=== PATIENT | female | born 1945 | race Caucasian/White ===

== ENCOUNTER 2020-09-27 15:08 | Inpatient (IN) | payer MEDICARE, SELFPAY ==
[2020-09-27 15:22] VITALS: BP 182/110; BP 215/97; PULSE 78; PULSE 98; RESP 17; TEMP 36.9; O2SAT 100; BMI 23.9
--- NOTE | 2020-09-27 15:34 | ED_ITS ---
HPI - Altered Mental Status General Chief Complaint: Altered Mental Status Stated Complaint: unknown Time Seen by Provider: 09/27/20 15:29 Source: EMS Mode of arrival: EMS History of Present Illness HPI narrative: 75-year-old female with a past medical history Alzheimer's, aortic aneurysm, presenting to ED for unwitnessed fall this morning s/p feeling dizzy. Patient lives at home alone, per family who spoke to patient this morning on phone patient had slurred speech/increased confusion. Suspected fall around 9:30-10am, LEAD PRODUCER came at 1:00 p.m. and said patient was staring off into space. Difficult to obtain clear history from patient due to dementia/forgetfulness. Denies pain at present. Unknown head trauma, denies taking anticoagulation, CP/SOB, abd pain, N/V Per son at baseline patient can have full conversations, is just forgetful, and stubborn complaint: altered mental status Related Data Allergies Allergy/AdvReac Type Severity Reaction Status Date / Time Sulfa (Sulfonamide Allergy Unknown UNKNOWN Unverified 07/15/20 15:03 Antibiotics) [SULFA (SULFONAMIDE ANTIBIOTICS)] Review of Systems Review of Systems: Constitutional:No Fever, No Chills Cardiovascular: No Chest Pain, No SOB Respiratory: No Cough Gastrointestinal: No Nausea, No Vomiting, No Abdominal pain Musculoskeletal: No joint pain, No Myalgias Skin: No Skin Lesions, No rash History limited secondary to dementia Yes all other systems are reviewed and are negative Neurologic: Reports confusion Psychiatric: Psychiatric: Reports confusion PMFSH Past Medical History Attestation statement: The following information was validated with the patient. Social History Social History Alcohol intake: never Smoked in Last 30 Days: No Use of substances other than those prescribed or required for medical reasons: No Advance Directives: No Advance Directives Information Provided: Yes Physical Exam Vital Signs: Vital Signs: Last Vital Signs Temp 98.2 F 09/27/20 19:27 Pulse 82 09/27/20 19:27 Resp 16 09/27/20 19:27 BP 187/93 H 09/27/20 19:27 Pulse Ox 99 09/27/20 19:27 Body Mass Index 23.9 Const: General: cooperative and confusion Orientation/consciousness: No oriented to time and confusion Limitations: no limitations HENMT: Other: Atraumatic Head: Yes normal to inspection Ears: hearing grossly normal bilaterally General nose exam: Normal external nose present Face and sinus: Yes normal facial exam Mouth: Normal oral and palatal mucosa present Eyes: General: appearance normal, both eyes and all related structures Pupils: Equal, round and reactive pupils present EOM: EOMs intact bilaterally Neck: Neck: Yes normal visual inspection Chest: Chest palpation & inspection: normal inspection of the chest Resp: Effort & Inspection: normal respiratory effort Auscultation: clear to auscultation bilaterally and no wheezes Cardio: Rate: regular rate Heart sounds: S1 normal heart sound present and S2 normal heart sound present GI: Inspection: Yes normal to inspection Palpation (GI): Soft to palpation, nontender, no guarding and not rigid Back/Spine/Pelvis: Other: No midline thoracic/lumbar spinous tenderness Skin: Rashes: no rashes Wounds: no wounds Neuro: Other: Intermittently follows commands, pleasantly confused, A&O x2 General: No oriented to time, tone normal, moves all extremities, no focal motor deficits, CN's II-XI intact bilaterally and confusion Cranial nerves: Yes Equal, round and reactive pupils present Gait exam (Neuro): Normal gait present Coordination: [id number] test normal Extrem: General: Yes normal to inspection NIH Stroke Scale Internal: Initial- Upon Arrival Level of Consciousness: Alert Level of Consciousness Questions: Answers one question correctly (baseline dementia) Level of Consciousness Commands: Performs both tasks correctly Best Gaze: Normal Visual: No visual loss Facial Palsy: Normal Motor Arm (Right): No drift Motor Arm (Left): No drift Motor Leg (Right): No drift Motor Leg (Left): No drift Limb Ataxia: Absent Sensory: Normal Best Language: No aphasia Dysarthia: Normal Extinction and Inattention: No abnormality Score: 1 Course Course Course Narrative: -elevated troponin 17.4 > no ischemic EKG changes, no priors to compare, will obtain 3hr repeat -labs otherwise unremarkable -CXR showing slightly enlarged cardiac silhouette -Head CT and C-spine CT without acute findings -2054--repeat troponin 19.3 > no delta, CO unlikely CT angio chest--mild aneurysmal dilation of the ascending aorta with maximum dimension around 4 cm. No dissection. >> plan for admission for further evaluation of possible CVA/TIA likely CTA head neck/MRI MDM - Altered Mental Status MDM Narrative Medical decision making narrative: 75-year-old female with a PMHx Alzheimer's, aortic aneurysm, presenting to ED for unwitnessed fall this morning s/p feeling dizzy. Patient lives at home alone, per family who spoke to patient this morning on phone patient had slurred speech/increased confusion. On exam hypertensive, NAD, A&O x2, confused, unable to obtain clear history, no focal neuro deficits. Concern for SDH vs ?CVA or TIA vs ACS vs metabolic/infectious etiology. Lower concern for dissection but on differential with pts hx Plan: EKG, labs, imaging, UA, reassess Lab Data Result diagrams: 09/27/20 16:24 09/27/20 16:24 Labs: Lab Results 09/27/20 09/27/20 09/27/20 Range/Units 15:50 16:24 16:24 WBC 9.4 (4.8-10.8) X10*3/uL RBC 4.19 L (4.20-5.50) X10*6/uL Hgb 12.8 (12.0-16.0) g/dl Hct 38.5 (37-47) % MCV 91.9 (80-98) fL MCH 30.5 (27.0-33.0) pg MCHC 33.2 (31.0-35.0) g/dl RDW 14.8 (11.0-16.0) % Plt Count 214 (160-400) X10*3/uL MPV 11.0 (9.4-12.3) fL Immature Gran % (Auto) 0.4 (0.0-0.4) % Neut % (Auto) 73.7 H (45-73) % Lymph % (Auto) 13.9 L (20-40) % [place] % (Auto) 10.2 (2-11) % Eos % (Auto) 1.2 (0-4) % Baso % (Auto) 0.6 (0-2) % Lymph # (Auto) 1.3 (1.2-4.9) X10*3/uL [place] # (Auto) 1.0 (0.1-1.2) X10*3/uL Eos # (Auto) 0.1 (0.0-0.4) X10*3/uL Baso # (Auto) 0.1 (0.0-0.2) X10*3/uL Abs Immat Gran (auto) 0.04 H (0.00-0.03) X10*3/uL Absolute Neuts (auto) 6.9 (2.0-8.3) X10*3/uL Absolute Nucleated RBC 0.000 (0.0-0.012) X10*3/uL Nucleated RBC % (auto) 0.0 (0.0-0.2) /100WBC PT (10.8-13.0) SEC INR (0.9-1.1) APTT (24.1-38.0) SEC Hold Blue Top Sodium 141 (135-145) mmol/L Potassium 4.1 (3.3-5.1) mmol/l Chloride 105 (96-108) mmol/L Carbon Dioxide 28 (22-29) mmol/L Anion Gap 12 (12-20) BUN 21 H (9-16) mg/dL Creatinine 0.77 (0.5-1.4) mg/dL Estim Creat Clear Calc 63.9 Estimated GFR > 60 POC Glucose 69 (60-115) mg/dL Random Glucose 100 (60-115) mg/dL Calcium 9.4 (8.4-10.2) mg/dL Magnesium 2.2 (1.6-2.6) mg/dL Total Bilirubin 0.5 (0.0-1.0) mg/dL Direct Bilirubin 0.2 (0.0-0.5) mg/dL AST 27 (5-31) U/L ALT 16 (0-31) U/L Alkaline Phosphatase 64 (39-117) U/L Troponin I High Sens (<3.5-17.0) ng/L B-Natriuretic Peptide (<100) pg/mL Total Protein 7.1 (6.5-8.0) g/dL Albumin 4.2 (3.5-5.0) g/dL Lipase 9 (8-78) U/L 09/27/20 09/27/20 09/27/20 Range/Units 16:24 16:24 16:24 WBC (4.8-10.8) X10*3/uL RBC (4.20-5.50) X10*6/uL Hgb (12.0-16.0) g/dl Hct (37-47) % MCV (80-98) fL MCH (27.0-33.0) pg MCHC (31.0-35.0) g/dl RDW (11.0-16.0) % Plt Count (160-400) X10*3/uL MPV (9.4-12.3) fL Immature Gran % (Auto) (0.0-0.4) % Neut % (Auto) (45-73) % Lymph % (Auto) (20-40) % [place] % (Auto) (2-11) % Eos % (Auto) (0-4) % Baso % (Auto) (0-2) % Lymph # (Auto) (1.2-4.9) X10*3/uL [place] # (Auto) (0.1-1.2) X10*3/uL Eos # (Auto) (0.0-0.4) X10*3/uL Baso # (Auto) (0.0-0.2) X10*3/uL Abs Immat Gran (auto) (0.00-0.03) X10*3/uL Absolute Neuts (auto) (2.0-8.3) X10*3/uL Absolute Nucleated RBC (0.0-0.012) X10*3/uL Nucleated RBC % (auto) (0.0-0.2) /100WBC PT 11.0 (10.8-13.0) SEC INR 0.9 (0.9-1.1) APTT 34.0 (24.1-38.0) SEC Hold Blue Top SEE NOTE Sodium (135-145) mmol/L Potassium (3.3-5.1) mmol/l Chloride (96-108) mmol/L Carbon Dioxide (22-29) mmol/L Anion Gap (12-20) BUN (9-16) mg/dL Creatinine (0.5-1.4) mg/dL Estim Creat Clear Calc Estimated GFR POC Glucose (60-115) mg/dL Random Glucose (60-115) mg/dL Calcium (8.4-10.2) mg/dL Magnesium (1.6-2.6) mg/dL Total Bilirubin (0.0-1.0) mg/dL Direct Bilirubin (0.0-0.5) mg/dL AST (5-31) U/L ALT (0-31) U/L Alkaline Phosphatase (39-117) U/L Troponin I High Sens 17.4 H (<3.5-17.0) ng/L B-Natriuretic Peptide 324 H (<100) pg/mL Total Protein (6.5-8.0) g/dL Albumin (3.5-5.0) g/dL Lipase (8-78) U/L 11/30/20 Range/Units 20:00 WBC (4.8-10.8) X10*3/uL RBC (4.20-5.50) X10*6/uL Hgb (12.0-16.0) g/dl Hct (37-47) % MCV (80-98) fL MCH (27.0-33.0) pg MCHC (31.0-35.0) g/dl RDW (11.0-16.0) % Plt Count (160-400) X10*3/uL MPV (9.4-12.3) fL Immature Gran % (Auto) (0.0-0.4) % Neut % (Auto) (45-73) % Lymph % (Auto) (20-40) % [place] % (Auto) (2-11) % Eos % (Auto) (0-4) % Baso % (Auto) (0-2) % Lymph # (Auto) (1.2-4.9) X10*3/uL [place] # (Auto) (0.1-1.2) X10*3/uL Eos # (Auto) (0.0-0.4) X10*3/uL Baso # (Auto) (0.0-0.2) X10*3/uL Abs Immat Gran (auto) (0.00-0.03) X10*3/uL Absolute Neuts (auto) (2.0-8.3) X10*3/uL Absolute Nucleated RBC (0.0-0.012) X10*3/uL Nucleated RBC % (auto) (0.0-0.2) /100WBC PT (10.8-13.0) SEC INR (0.9-1.1) APTT (24.1-38.0) SEC Hold Blue Top Sodium (135-145) mmol/L Potassium (3.3-5.1) mmol/l Chloride (96-108) mmol/L Carbon Dioxide (22-29) mmol/L Anion Gap (12-20) BUN (9-16) mg/dL Creatinine (0.5-1.4) mg/dL Estim Creat Clear Calc Estimated GFR POC Glucose (60-115) mg/dL Random Glucose (60-115) mg/dL Calcium (8.4-10.2) mg/dL Magnesium (1.6-2.6) mg/dL Total Bilirubin (0.0-1.0) mg/dL Direct Bilirubin (0.0-0.5) mg/dL AST (5-31) U/L ALT (0-31) U/L Alkaline Phosphatase (39-117) U/L Troponin I High Sens 19.3 H (<3.5-17.0) ng/L B-Natriuretic Peptide (<100) pg/mL Total Protein (6.5-8.0) g/dL Albumin (3.5-5.0) g/dL Lipase (8-78) U/L Discharge Plan Discharge Clinical Impression: Altered mental status, Fall Patient Disposition: Admitted As Inpatient
[2020-09-27 15:40] VITALS: BP 207/103; PULSE 78; RESP 17; TEMP 36.9; O2SAT 100
[2020-09-27 15:54] LABS: Glucose, Whole Blood 69 mg/dL (60-115)
--- NOTE | 2020-09-27 16:16 | ECG_ITS ---
Test Reason : POST FALL Blood Pressure : / mmHG Vent. Rate : 083 BPM Atrial Rate : 083 BPM P-R Int : 178 ms QRS Dur : 100 ms QT Int : 388 ms P-R-T Axes : 049 009 068 degrees QTc Int : 455 ms Normal sinus rhythm Normal ECG No previous ECGs available Referred By: Larissa Ordoñez Electronically Signed By:MASSIEL WATERS MD
--- NOTE | 2020-09-27 16:17 | XR_ITS ---
EXAMINATION: XR CHEST CLINICAL INFORMATION: Acute mental status change COMPARISON: None TECHNIQUE: Frontal view of the chest was obtained. FINDINGS: The cardiac silhouette appears enlarged. The thoracic aorta is calcified and tortuous. Hilar and mediastinal contours are unremarkable. The lungs are clear. There is no pleural effusion or pneumothorax. There are degenerative changes of the spine and shoulder joints. There are calcifications in the left axilla probably representing lymph node calcification. XR/XR chest 1V IMPRESSION: Slightly enlarged cardiac silhouette.
--- NOTE | 2020-09-27 16:17 | CT_ITS ---
EXAMINATION: CT HEAD WITHOUT CONTRAST CT CERVICAL SPINE WITHOUT CONTRAST CLINICAL INFORMATION: Fell. Slurred speech. COMPARISON: CT head 11/23/2018 TECHNIQUE: Imaging was performed from the skull base to vertex without intravenous administration of contrast. In addition, helical noncontrast CT imaging was acquired through the cervical spine and source images were reviewed along with axial reconstructions and sagittal and coronal MPRs. [This CT examination was performed using dose optimization techniques as appropriate, variously including the following: *Automated exposure control *Adjustment of mA and/or kV according to patient size (this includes techniques or standardized protocols for targeted exams where dose is matched to indication/reason for exam; i.e. 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 There is no acute intracranial abnormality. No intracranial mass, hemorrhage, or midline shift is visualized. There is atrophy with prominence of the ventricles and the sulci and hypodensity of the periventricular white matter due to chronic small vessel ischemic disease. There are vascular calcifications of the internal carotid arteries bilaterally. . No extra-axial collections are identified. The paranasal sinuses and mastoid air cells are well aerated. CERVICAL SPINE: There is no evidence of acute cervical spine fracture. Vertebral bodies remain normal in height. Cervical vertebrae have normal alignment. There is multilevel degenerative spondylosis of the cervical spine with disc height narrowing and endplate spurs and facet joint arthrosis No pre- or paravertebral soft tissue abnormality is identified. Limited assessment of the lung apices is unremarkable. CT/CT cervical spine wo con IMPRESSION: 1. No acute intracranial pathology. 2. No CT evidence of acute cervical spine fracture or traumatic subluxation
[2020-09-27 16:29] LABS: MANUAL DIFF FLAG NO
[2020-09-27 16:32] LABS: Basophils Absolute Auto 0.1 X10*3/uL (0.0-0.2); Basophils Percent Auto 0.6 % (0-2); Eosinophils Absolute Auto 0.1 X10*3/uL (0.0-0.4); Eosinophils Percent Auto 1.2 % (0-4); Hematocrit 38.5 % (37-47); Hemoglobin 12.8 g/dl (12.0-16.0); Imm Gran Abs Auto 0.04 X10*3/uL (0.00-0.03); Imm Gran Pct Auto 0.4 % (0.0-0.4); Lymphocytes Absolute Auto 1.3 X10*3/uL (1.2-4.9); Lymphocytes Percent Auto 13.9 % (20-40); Mean Corpuscular HGB Conc 33.2 g/dl (31.0-35.0); Mean Corpuscular Hemoglobin 30.5 pg (27.0-33.0); Mean Corpuscular Volume 91.9 fL (80-98); Monocytes Percent Auto 10.2 % (2-11); Neutrophils Absolute Auto 6.9 X10*3/uL (2.0-8.3); Neutrophils Percent Auto 73.7 % (45-73); Platelet Count 214 X10*3/uL (160-400); Red Blood Count 4.19 X10*6/uL (4.20-5.50); Red Cell Distribution Width 14.8 % (11.0-16.0); White Blood Count 9.4 X10*3/uL (4.8-10.8)
[2020-09-27 16:44] LABS: INTERNATIONAL NORM RATIO 0.9 (0.9-1.1)
[2020-09-27 17:07] LABS: Alanine Aminotransferase 16 U/L (0-31); Albumin Level 4.2 g/dL (3.5-5.0); Alkaline Phosphatase 64 U/L (39-117); Anion Gap 12 (12-20); Aspartate Amino Transferase 27 U/L (5-31); Bilirubin Direct 0.2 mg/dL (0.0-0.5); Bilirubin Total 0.5 mg/dL (0.0-1.0); Blood Urea Nitrogen 21 mg/dL (9-16); Calcium 9.4 mg/dL (8.4-10.2); Carbon Dioxide 28 mmol/L (22-29); Chloride 105 mmol/L (96-108); Creatinine Clr Calc Pharmacy 63.9; Estimated Glomerular Filt Rate > 60; Glucose Random 100 mg/dL (60-115); Lipase 9 U/L (8-78); Magnesium 2.2 mg/dL (1.6-2.6); Potassium 4.1 mmol/l (3.3-5.1); Sodium 141 mmol/L (135-145); Total Protein 7.1 g/dL (6.5-8.0)
[2020-09-27 17:14] LABS: B Type Natriuretic Peptide 324 pg/mL (<100); Troponin-I High Sensitivity 17.4 ng/L (<3.5-17.0)
[2020-09-27] MEDS: 0.9 % Sodium Chloride 500 ML 999 ML IVCONT (18:09)
--- NOTE | 2020-09-27 18:19 | CT_ITS ---
EXAMINATION: CT ANGIOGRAM CHEST CLINICAL INFORMATION: Chest pain with question of aortic dissection COMPARISON: None TECHNIQUE: Multiple axial images were obtained through the chest after the administration of 70 mL of Omnipaque 350 intravenous contrast. Extensive vascular post-processing including two-dimensional and three-dimensional reformatted images were created and reviewed on an independent workstation. This CT examination was performed using dose optimization techniques as appropriate, variously including the following: *Automated exposure control *Adjustment of mA and/or kV according to patient size (this includes techniques or standardized protocols for targeted exams where dose is matched to indication/reason for exam; i.e. extremities or head) *Use of iterative reconstruction technique DLP: 274 mGy-cm VASCULAR FINDINGS: The thoracic aorta is dilated at 5.0 x 4.6 cm in maximal transverse dimension at the level of the main pulmonary artery. The true diameter perpendicular to a center line is significantly less and probably closer to 4.4 cm (see cooley image). A three-vessel branching pattern of the aortic arch is seen. No dissection is present. The descending thoracic aorta demonstrates calcific atherosclerotic plaquing. The visualized abdominal aorta demonstrates calcific plaque. A celiac stenosis is present. The SMA is widely patent. Only the very proximal left renal artery is seen and this appears normal. Although not carried out for evaluation of the pulmonary arteries and pulmonary veins, no significant abnormality is seen. NONVASCULAR FINDINGS: A tiny triangular. Fissural nodule present in the right lower lobe measuring about 3 mm probably a fissural lymph node. No worrisome lung masses are seen. Bibasilar atelectasis is present. No pleural effusions are seen. The heart is mildly enlarged. Coronary calcifications are seen. No mediastinal or hilar lymphadenopathy is seen. The chest wall appears normal. The visualized structures of the upper abdomen demonstrates a probable left adrenal mass measuring 2.2 x 2.5 x 2.4 cm. This measures 27 Hounsfield units and cannot be called a benign adenoma based upon this study only. CT/CT angio chest IMPRESSION: Mild aneurysmal dilatation of the ascending aorta with maximum dimension probably around 4 cm. No aortic dissection is seen. Incidental note made of a small 3 mm pulmonary nodular density, probably intrafissural lymph node. Incidental note made of a left adrenal mass, indeterminate based upon this exam. Pre and postcontrast adrenal washout study could be performed for further evaluation
[2020-09-27 19:27] VITALS: BP 187/93; PULSE 82; RESP 16; TEMP 36.8; O2SAT 99
[2020-09-27] MEDS: iohexoL 350 MG/ML 100 ML INFUS..BTL IV (19:27)
[2020-09-27 20:35] LABS: Troponin-I High Sensitivity 19.3 ng/L (<3.5-17.0)
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
[2020-09-27 21:09] LABS: Appearance Urine CLEAR; Color Urine YELLOW; Glucose Urine UA NEG (NEG); Leukocyte Esterase Urine NEG (NEG); Nitrite Urine POS (NEG); Specific Gravity - Urine 1.015 (1.005-1.025); Urine Blood NEG (NEG); Urine Ketones NEG (NEG); Urine Protein NEG (NEG-TRACE)
--- NOTE | 2020-09-27 21:16 | PC.NURSE ---
pt cleansed of incontinent urine. was SOAKED through clothing and linnens. pt encouraged to use call fountain b/f urination if possible. pt has been on cell phone with family.
[2020-09-27 21:23] LABS: Bacteria Urine 2+ /LPF; RBC Urine 0-2 /HPF (0); WBC Urine 0-2 /HPF (0-4)
[2020-09-27 21:40] LABS: Amphetamine Screen Urine Not Detected (Not Detect); Barbiturates, Urine Not Detected (Not Detect); Benzodiazepines Screen Urine Not Detected (Not Detect); Cannabinoid Screen Urine Not Detected (Not Detect); Cocaine Screen Urine Not Detected (Not Detect); Opiate Screen Urine Not Detected (Not Detect); Phencyclidine Screen Urine Not Detected (Not Detect)
--- NOTE | 2020-09-27 21:41 | PC.NURSE ---
PATIENT'S SON CALLED. UPSET THAT [facility] WAS CALLED. SON IS POWER OF GYM INSTRUCTOR. DOES NOT TAKE ANY PRESCRIBED OR OTC MEDS. ONLY HOLISTICS DOES NOT KNOW NAMES.
[2020-09-27] MEDS: Aspirin 325 MG TABLET PO (22:20)
--- NOTE | 2020-09-27 22:28 | PC.NURSE ---
as per conversation with son, patient does not take otc or prescribed meds. patient takes holistic nedications and will know then. when asked, patient states does not remember medications
[2020-09-27 23:09] LABS: COVID-19 Test Negative (Negative); IDNOW Serial# 9DD0AD1C
[2020-09-28] VITALS (7 sets, daily range): BP systolic 140–182; BP diastolic 76–94; PULSE 56–75; RESP 17–20; TEMP 35.7–37; O2SAT 95–99
[2020-09-28] MEDS: Aspirin Enteric Coated 325 MG TABLET.DR PO (05:49)
[2020-09-28 07:16] LABS: MANUAL DIFF FLAG NO
[2020-09-28 07:24] LABS: Basophils Absolute Auto 0.1 X10*3/uL (0.0-0.2); Basophils Percent Auto 0.8 % (0-2); Eosinophils Absolute Auto 0.1 X10*3/uL (0.0-0.4); Eosinophils Percent Auto 2.1 % (0-4); Hematocrit 34.2 % (37-47); Hemoglobin 11.3 g/dl (12.0-16.0); Imm Gran Abs Auto 0.01 X10*3/uL (0.00-0.03); Imm Gran Pct Auto 0.2 % (0.0-0.4); Lymphocytes Absolute Auto 1.4 X10*3/uL (1.2-4.9); Lymphocytes Percent Auto 21.9 % (20-40); Mean Corpuscular Hemoglobin 30.1 pg (27.0-33.0); Mean Platelet Volume 10.7 fL (9.4-12.3); Monocytes Absolute Auto 0.9 X10*3/uL (0.1-1.2); Monocytes Percent Auto 14.1 % (2-11); Neutrophils Absolute Auto 3.8 X10*3/uL (2.0-8.3); Neutrophils Percent Auto 60.9 % (45-73); Platelet Count 194 X10*3/uL (160-400); Red Blood Count 3.76 X10*6/uL (4.20-5.50); White Blood Count 6.3 X10*3/uL (4.8-10.8)
[2020-09-28 07:57] LABS: Anion Gap 12 (12-20); Blood Urea Nitrogen 22 mg/dL (9-16); Calcium 8.8 mg/dL (8.4-10.2); Carbon Dioxide 26 mmol/L (22-29); Chloride 106 mmol/L (96-108); Creatinine Clr Calc Pharmacy 63.9; Estimated Glomerular Filt Rate > 60; Glucose Random 82 mg/dL (60-115); Potassium 3.9 mmol/l (3.3-5.1); Sodium 140 mmol/L (135-145)
--- NOTE | 2020-09-28 10:21 | MHC.CM.PN ---
CM met with Patient and spoke with Son/HCP/TERRY in [place], at [phone]. Patient lives alone in a trailer and is functionally independent. Per Terry Patient does not like medical sales associate and she has not seen a MD in 20 years and Patient only takes holistic meds. Per Terry, Patient does NOT have Dementia, She is just mean. Patient's Granddaughter is a WELDER/FABRICATOR (Not Patient's WELDER/FABRICATOR), visits Patient daily. IMM addressed with Son and Granddaughter and per Son/HCP request, the original is being mailed to Granddaughter and a copy will be placed on the chart. Per Terry, Patient will not want VNA nor SNF for STR. Eventually, Terry plans to move Patient to [place] to live with him. [facility]ENEA has initiated and will follow for dc planning.
--- NOTE | 2020-09-28 10:47 | HO.PM.IMPN ---
Subjective Subjective Date of Service: 09/28/20 Interval History: Seen in f/u for slur speech ? stroke. No change this morning, speech is clear ROS: no fever, nl speech Physical Exam Vital Signs: Vital Signs: Last Vital Signs Temp 97.2 F 09/28/20 07:19 Pulse 58 09/28/20 07:19 Resp 17 09/28/20 07:19 BP 147/79 H 09/28/20 07:19 Pulse Ox 96 09/28/20 07:19 Body Mass Index 23.9 General: AO X 3, no acute distress Resp: CTA bilateral CVS: S1,S2,RRR GI: +BS, NT, no distention Skin: No rash Neuro: motor grossly intact Psych: appropriate affect Objective Data Current Medications Generic Name Dose Route Start Last Admin Trade Name Freq PRN Reason Stop Dose Admin Aspirin 325 mg 09/28/20 06:00 09/28/20 08:23 Aspirin Enteric Coated 325 Mg Tablet.Dr CORRAL Not Given DAILY [facility] [place] Pharmacy Consult 1 each 09/27/20 21:23 Consult Rx Perform Med Rec MISCELLANE ONCE PRN Consult order Labs CBC & Chem 7: 09/28/20 06:50 09/28/20 06:50 Microbiology Microbiology Results: Microbiology 09/27/20 21:11 Urine clean catch - Clean Catch Midstream Urine Culture - Preliminary Gram negative conrad Assessment and Plan (1) Stroke: Status: Acute (2) Dementia: Status: Acute (3) IBS (irritable bowel syndrome): Status: Acute Assessment and Plan: 75/F with dementia here with transient slur speech, no evidence of stroke on CTA Transient slur speech--no evidence of stroke -ASA, neuro eval Thoracic aorta aneurysm 5 x 4.6 vascular surgery consult Adrenal lesion--further w/u on outpatient basis, likely bening HTN--no meds, if persists start meds. Add heparin for DVT prophylaxis
--- NOTE | 2020-09-28 11:30 | CT_ITS ---
CT ANGIOGRAM NECK WITH CONTRAST CT ANGIOGRAM BRAIN WITH CONTRAST CLINICAL INFORMATION: Rule out stroke. COMPARISON: Head CT 09/27/2020. TECHNIQUE: Test bolus sequences followed by intravenous administration 70 mL of Omnipaque 350. Helical imaging was performed in the axial plane from the thoracic inlet to the skull vertex. Delayed postcontrast imaging of the head was also performed. The data was processed at the electromechanical technologist workstation for generation of MIP sequences. Angled MIPs and volume rendered reformatted images were also generated at an offline 3D workstation under concurrent supervision. Stenoses are assessed in accordance with NASCET criteria unless otherwise indicated. This CT examination was performed using dose optimization techniques as appropriate, variously including the following: *Automated exposure control *Adjustment of mA and/or kV according to patient size (this includes techniques or standardized protocols for targeted exams where dose is matched to indication/reason for exam; i.e. extremities or head) *Use of iterative reconstruction technique FINDINGS: BRAIN: [Stable distribution chronic infarcts within the inferior temporal lobes bilaterally and within the high left frontal lobe when compared to 11/23/[address] No definite acute infarcts are identified though assessment is limited by the degree of advanced chronic microangiopathy. There is no intracranial hemorrhage, hydrocephalus, extra-axial surface collection, midline shift, or other herniation pattern. [place] to white matter differentiation is diffusely maintained without evidence of an evolved acute territorial infarct. The basilar cisterns are preserved. No significant soft tissue abnormality. No acute osseous abnormality. The paranasal sinuses and the mastoid air cells are well aerated.] CERVICAL SOFT TISSUES AND LUNG APICES: Multilevel cervical spondylosis. Lingual tonsillar hypertrophy partially effaces the vallecula bilaterally. NECK CTA: Aneurysmal dilatation of the ascending thoracic aorta which measures 4.3 cm in AP dimension. Proximal arch vessels are non-stenotic. The vertebral arteries are codominant. No significant ostial stenosis is visualized on either side. Both vertebral arteries are widely patent throughout their extracranial cervical course. Both common and internal carotid arteries are normal in course and caliber.] BRAIN CTA: There is atherosclerotic calcification throughout the intracranial arterial vasculature without significant stenosis. No focal flow-limiting stenosis nor discrete proximal large artery occlusion. No aneurysm. Timing of the contrast bolus allows assessment of the major dural venous sinuses, which all opacify normally] CT/CT angio neck IMPRESSION: - No definite acute infarcts though assessment is limited by the degree of advanced chronic microangiopathy and chronic ischemic changes within the inferior temporal lobes bilaterally and the high left frontal lobe. MRI would be more sensitive in assessing for any superimposed acute ischemic changes if not contraindicated. - No acute arterial occlusions and no significant arterial stenoses within the head or neck. - Aneurysmal dilatation of the ascending thoracic aorta which measures 4.3 cm in AP dimension.
[2020-09-28] MEDS: iohexoL 350 MG/ML 100 ML INFUS..BTL IV (12:12)
[2020-09-28] MEDS: Heparin Sodium,Porcine 5,000 UNIT/ML VIAL 5000 UNIT SUBCUT ×2 (13:31→22:20)
--- NOTE | 2020-09-28 13:31 | P.EN_ITS ---
Event Note Date of Service: 09/28/20 Event Note: Full consult dictated. No intervention indicated. Will need card iology follow-up as outpatient.
--- NOTE | 2020-09-28 15:29 | CONS_ITS ---
DATE OF SERVICE: 09/27/2020 REASON FOR CONSULTATION: 1. Ascending aortic aneurysm. 2. Concern of stroke. HISTORY OF PRESENT ILLNESS: A 75-year-old female with history of mild dementia, presented from her house with some slurred speech. She had some confusion. She was subsequently brought into the ER. At that time, CT of the neck was negative. They also did a CT of the chest, which demonstrated a mild ascending aortic aneurysm without evidence of dissection. She was subsequently admitted for workup. She now presents to us for vascular evaluation. PAST MEDICAL HISTORY: Significant for irritable bowel syndrome, altered mental status, and dementia. PAST SURGICAL HISTORY: None significant. MEDICATIONS: Medication list was reviewed per nursing MAR. ALLERGIES: INCLUDE SULFA AND GLUTEN. SOCIAL HISTORY: Nonsmoker. Nondrinker. FAMILY HISTORY: No history of advanced coronary artery disease or peripheral vascular disease. REVIEW OF SYSTEMS: 13-point review was attempted. At the current time, denies any headache, dizziness, nausea, vomiting, diarrhea, or shortness of breath. It was difficult to ascertain the true review of systems as she did have some mild confusion. At the time of my exam, she was present with Speech Pathology and was tolerating . PHYSICAL EXAMINATION: GENERAL: Afebrile. VITAL SIGNS: Stable. HEAD AND NECK: Demonstrated no bruits. CHEST: Moving air bilaterally. CARDIAC: Positive S1 and S2. ABDOMEN: Soft. EXTREMITIES: Upper extremities have good radial and ulnar pulses. Lower extremities warm with good capillary refill. NEUROLOGICAL: II through XII grossly intact. PSYCH: There appears to be some mild confusion. When discussion with her, she does have remote history. Acute history is difficult to obtain. IMPRESSION: 1. Transient slurred speech. There is no acute evidence of stroke. In addition, CTA of the neck demonstrated no significant stenosis of the carotid arteries. 2. Thoracic aneurysm. I did have an opportunity to independently review images and CTA of the chest demonstrates the true diameter to be more likely 4.4 cm. It is asymptomatic at the current time. Would recommend outpatient followup with Thoracic Surgery at [facility] regarding this. In short, no acute intervention is required. Continue medical management. We will follow on an as-needed basis. Thank you for allowing us to assist in her care. MD SHAHRIAR Polanco/ROXY / [phone]
--- NOTE | 2020-09-28 17:38 | P.CNNE_ITS ---
History of Present Illness Data of Consult Service Date: 09/28/20 Primary Care Provider: Unknown Physician HPI Reason for consult: Possible syncopal episode and slurred speech This is a 75-year-old woman who may have mild dementia. She was admitted with slurred speech however she tells me that she has had slurred speech for 20 years because she had an injury to the right side of her tongue which shows right tong ue atrophy. She says her speech has been the same ever since and it has not changed. She says that she found herself on the floor and may have passed out. This is not documented in the ER record or the admitting H&P. It's unclear whether she is a reliable historian. She has no lateralized weakness or numbness. She has never had a syncopal episode. She injured the tongue from a fall 20 years ago. Review of Systems Eyes: Eyes: Reports no additional eye complaints ENT: Reports system reviewed and no additional complaints, except as documented and Reports Normal hearing present Cardiovascular: Cardiovascular: Reports no additional cardiovascular complaints Respiratory: Respiratory: Reports no additional respiratory complaints Gastrointestinal: Gastrointestinal: Reports no additional gastrointestinal complaints Musculoskeletal: Musculoskeletal: Reports no additional musculoskeletal complaints Integumentary/Breasts: Skin/Breast: Reports system reviewed and no additional complaints, except as docu Neurologic: Reports Normal hearing present and Reports confusion Psychiatric: Psychiatric: Reports confusion Endocrine: Endocrine: Reports no additional endocrine complaints Hematologic/Lymphatic: Hematologic/Lymphatic: Reports no additional hematologic/lymphatic complaints Allergic/Immunologic: Allergic/Immunologic: Reports no additional allergic/immunologic complaints FOR[facility]LY [facility], [facility] Past Medical History Medical History (Updated 09/28/20 @ 17:41 by Joan Rucker MD) Celiac disease Functional capacity: independent ambulation Social History Social History Household Members: None Housing: House Do you presently have visiting nurse or other home services: No Alcohol intake: never Smoking Status: Never smoker Smoked in Last 30 Days: No Use of substances other than those prescribed or required for medical reasons: No Currently Displaying Signs/Symptoms of Drug Intoxication Withdrawal: No Have you been hit, kicked, punched, or otherwise hurt by someone within the past year? If so, by whom?: No Do you feel safe in your current relationship?: No Current Relationship Is there a partner from a previous relationship who is making you feel unsafe now?: No Are you made to feel afraid or neglected: No Advance Directives: No Advance Directives Information Provided: Yes Do you have thoughts of harming others: None Do you have a plan to hurt others: No Plan Recently lost weight without trying: No service: No Current occupational status: retired Meds Allergies Allergy/AdvReac Type Severity Reaction Status Date / Time Sulfa (Sulfonamide Allergy Unknown UNKNOWN Unverified 07/15/20 15:03 Antibiotics) [SULFA (SULFONAMIDE ANTIBIOTICS)] gluten Allergy Abdominal Verified 09/28/20 08:13 Pain Physical Exam Vital Signs: Vital Signs: Last Vital Signs Temp 97.8 F 09/28/20 15:49 Pulse 57 09/28/20 15:49 Resp 18 09/28/20 15:49 BP 182/88 H 09/28/20 15:49 Pulse Ox 99 09/28/20 15:49 Body Mass Index 23.9 Const: General: confusion Nutritional Appearance: well nourished Orientation/consciousness: confusion Limitations: no limitations HENMT: Head: Yes normal to inspection, Yes normocephalic and Yes atraumatic Ears: hearing grossly normal bilaterally General nose exam: Normal external nose present Face and sinus: Yes normal facial exam Mouth: Normal oral and palatal mucosa present Eyes: General: appearance normal, both eyes and all related structures Visual Magana: normal visual magana by confrontation Alignment and Position: alignment normal Periorbital: periorbital findings normal Eyelids: Yes eyelids normal Conjunctivae: conjunctivae normal Sclerae: sclerae normal Corneas: corneas normal Pupils: Equal, round and reactive pupils present and Pupil accommodation reflex normal EOM: EOMs intact bilaterally Direct Ophthalmoscopy: normal light reflex Neck: Neck: Yes normal visual inspection, Yes full ROM and Yes no meningeal signs Thyroid: Thyroid normal Carotids: normal carotid upstroke and bounding pulses Chest: Chest palpation & inspection: normal inspection of the chest Resp: Effort & Inspection: normal respiratory effort Auscultation: clear to auscultation bilaterally Cardio: Rate: regular rate Rhythm: regular rhythm Heart sounds: S1 normal heart sound present and S2 normal heart sound present Peripheral pulses: Peripheral pulses 2+ throughout GI: Inspection: Yes normal to inspection Percussion: Yes normal to percussion Auscultation: normal bowel sounds Rectal Exam - Female: deferred Back/Spine/Pelvis: Cervical Spine: normal cervical lordosis and cervical ROM normal Thoracic/Lumbar Spine: thoracic and lumbar spine normal to inspection Skin: General skin exam: no rashes or lesions noted Neuro: General: no meningeal signs and confusion Cranial nerves: Yes CN's II-XII intact bilaterally, Yes Equal, round and reactive pupils present, Yes Bilaterally intact EOM present, Yes Nystagmus not present, Yes Normal facial strength present, Yes Midline tongue present, Yes Normal gag reflex present, Yes Symmetric palate elevation present, Yes Normal hearing present and Yes Ability t o bilaterally rotate head present Cognition (Neuro): normal cognition Speech: Other speech findings present (Neuro) Gait exam (Neuro): Normal gait present Motor exam (neuro): 5/5 motor strength present throughout, Pronator motor function not present, no tremor noted, no asterixis, Motor fasciculations not present, Normal motor muscle tone present throughout and Motor abnormalities not present Sensory Exam: Bilaterally intact graphesthesia Deep tendon reflexes (DTR's): Right triceps reflex intensity grade: 2+, Left triceps reflex intensity grade: 2+, Rt Biceps (C5, C6): 2+, Left biceps reflex intensity grade: 2+, Right brachioradialis reflex intensity grade: 2+, Left brachioradialis reflex intensity grade: 2+, Right patellar reflex intensity grade: 2+, Left patellar reflex intensity grade: 2+, Right ankle reflex intensity grade: 2+ and Left ankle reflex intensity grade: 2+ Plantar Reflex Responses: downgoing: right, left and bilateral Coordination: [id number] test normal, [id number] test normal, tandem gait normal and Romberg test negative Pupils: Normal pupillary reactivity/response: bilateral Extrem: General: Yes normal to inspection, Yes normal exam except as noted and Yes no pedal edema Psych: Appearance: grossly normal Mental Status: mental status grossly normal Speech and movement: Normal speech and movement present and Clear speech present Affect: normal affect Attitude: cooperative Thought process: Normal thought process present Results Labs CBC & Chem 7: 09/28/20 06:50 09/28/20 06:50 Labs: Short CBC 09/28/20 Range/Units 06:50 WBC 6.3 (4.8-10.8) X10*3/uL Hgb 11.3 L (12.0-16.0) g/dl Hct 34.2 L (37-47) % Plt Count 194 (160-400) X10*3/uL BMP 09/28/20 06:50 Sodium 140 Potassium 3.9 Chloride 106 Carbon Dioxide 26 BUN 22 H Creatinine 0.77 Calcium 8.8 D Urine 09/27/20 Range/Units 21:01 Urine Color YELLOW Urine Appearance CLEAR Urine pH 7.0 (5.0-8.0) Ur Specific [place] 1.015 (1.005-1.025) Urine Protein NEG (NEG-TRACE) MG/DL Urine Glucose (UA) NEG (NEG) MG/DL Microbiology Microbiology Results: Microbiology 09/27/20 21:11 Urine clean catch - Clean Catch Midstream Urine Culture - Preliminary Gram negative conrad Assessment and Plan (1) Altered mental status: Problem details: Possible syncopal episode Status: Acute EEG (2) Fall: Status: Acute (3) Dementia: Problem details: Patient's alert and oriented and appropriate at this time and may have mild cognitive impairment Status: Acute (4) Dysarthria: Problem details: This appears to be chronic 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 Her CT brain shows microvascular disease and CTA of the head and neck showed no significant stenosis.
[2020-09-28 19:23] LABS: Cholesterol 138 mg/dL; HDL Cholesterol 54 mg/dL; LDL Cholesterol Calculated 65 mg/dl; Triglycerides 96 mg/dL
--- NOTE | 2020-09-28 19:55 | MHC.STROKE ---
Addendum entered by Lisette Arrieta RN 09/28/20 19:57: ON 09/27/20 AT 2200 VERIFIED THAT PATIENT PASSED SWALLOW SCREEN. SHE PASSED SECOND SCREEN UPON ADMISSION ASSESSMENT TO [facility] [place]. LIPID PANEL ADDED LDL 65. Original Note: DR. GASPAR IS RECOMMENDING AN EEG, PLEASE ORDER IF INDICATED. REFER TO HIS RECOMMENDATIONS.
[2020-09-29] VITALS (11 sets, daily range): BP systolic 164–190; BP diastolic 84–91; PULSE 70–77; RESP 18–20; TEMP 36.5–37.1; O2SAT 96–98
--- NOTE | 2020-09-29 | ECG_ITS ---
Test Reason : chest pain Blood Pressure : / mmHG Vent. Rate : 076 BPM Atrial Rate : 076 BPM P-R Int : 256 ms QRS Dur : 124 ms QT Int : 426 ms P-R-T Axes : 067 000 056 degrees QTc Int : 479 ms Poor data quality Sinus rhythm with 1st degree A-V block Nonspecific ST abnormality Abnormal ECG Poor data quality in current ECG precludes serial comparison Referred By: Jelly Escoto Electronically Signed By:MASSIEL WATERS MD
[2020-09-29] MEDS: hydrALAZINE HCl 20 MG/ML VIAL 5 MG IVPUSH (00:55)
--- NOTE | 2020-09-29 06:00 | CA_ITS ---
Transthoracic Echocardiogram Patient (Last, First, Middle): Ailyn Ma M Gender: Female Date of : 1945 Age: 75 Procedure Date: 09/29/2020 Procedure Type: Transthoracic Echocardiogram Location: [facility] [place] Height: 175.26 cm Weight: 73.48 kg BSA: 1.89 m2 Heart Rate: bpm BP: 140 / 76 mmHg Director Of Security: Referring MD: Jelly Escoto MD Marine Engineer Cpvec: Brad Rich MD Symptoms: stroke Study Quality: Good ECG Rhythm: Sinus Conclusions: - 1. Normal LV systolic function with mild concentric left ventricular hypertrophy and severe asymmetric septal hypertrophy with impaired relaxation filling pattern 2. Severely dilated left atrium 3. Mild aortic regurgitation 4. Normal RV systolic pressure 5. No pericardial effusion Findings Left Ventricle Normal left ventricular size and systolic function. There is mildly increased left ventricular wall thickness. The visually estimated ejection fraction is between 60-65%. Spectral Doppler is indicative of an impaired relaxation filling pattern. E/E prime ratio is between 8 and 15 consistent with indeterminate filling pressures. There is severe septal asymmetric hypertrophy. Right Ventricle Normal right ventricular cavity size and systolic function. Atria The left atrium is severely dilated. There is lipomatous hypertrophy of the interatrial septum. There is no evidence of interatrial shunt. The right atrium is mildly dilated. Aortic Valve The aortic valve was not well visualized. There is mild calcification of the aortic valve. There is no aortic valve stenosis. There is mild aortic valve regurgitation. Mitral Valve There is mild anterior and posterior mitral leaflet thickening. There is mild mitral valve regurgitation. There is no mitral valve stenosis. Tricuspid Valve Likely normal tricuspid valve structure and function. There is trace tricuspid valve regurgitation. Normal right atrial pressure. There is no evidence of pulmonary hypertension. Great Vessels All visible segments of the aorta are normal in size. The pulmonary artery was not well visualized. Venous The inferior vena cava is normal in size and collapses greater than 50% with inspiration. Pericardium/Pleural There is no evidence of pericardial effusion. Prior Study Comparison No prior study available for comparison. Measurements 2D Linear Measurements IVSd: 1.73 0.6-0.9/0.6-1.0 cm LVIDd: 3.42 3.9-5.3/4.2-5.9 cm LVIDd Index: 1.81 2.4-3.2/2.2-3.1 cm/m2 LVIDs: 2.27 2.0-3.6 cm LVPWd: 1.30 0.7-1.1 cm Ao Root: 3.50 2.1-3.5 cm LA Diam: 4.40 2.7-3.8/3.0-4.0 cm LAIDs Index: 2.33 1.5-2.3 cm/m2 LV Mass: 297.09 67-162/88-224 g LV Mass Index: 157.19 43-95/49-115 g/m2 LVOT Diam: 2.20 3.0+(-)1.3 cm Mitral Valve MV Pk E: 0.64 MV PK A: 0.59 MV Decel Time: 204.00 E/A: 1.10 E'Lateral: 7.93 E'Medial: 4.74 E/E' Med: 13.50 E/E' Lat: 8.10 PHT: 60.00 MVA PHT: 3.67 Decel [place]: 3.14 Aortic Valve AoV Pk Dangelo: 1.82 AoV Mn Dangelo: 1.05 AoV VTI: 0.37 AoV Pk Grad: 13.00 Aov Mn Grad: 6.00 BEATRIZ Cont.VTI: 2.50 LVOT LVOT Pk Dangelo: 1.06 LVOT Mn Dangelo: 0.68 LVOT VTI: 0.24 LVOT Pk Grad: 4.00 LVOT Mn Grad: 2.00 LVOT Diam: 2.20 LVOT Area: 3.80 Diastolic Function MV Pk E: 0.64 MV Pk A: 0.59 E/A: 1.10 E'Medial: 4.74 E/E' Med: 13.50 E' Laterial: 7.93 E/E' Lat: 8.10 Tricuspid Valve TR Pk Dangelo: 2.59 TR Pk Grad: 27.00 RA Press: 3.00 RVSP: 30.00 Great Vessels Aorta Ao Root-2D: 3.50 2.0-3.7 cm Pulmonary Valve PV Pk Dangelo: 1.21 Peak PV Grad: 6.00 Updated in Other Vendor System with Status of Final Brad Rich MD electronically signed on 09/29/2020 5:20:27 PM with status of Final
--- NOTE | 2020-09-29 07:22 | PC.NURSE ---
p: 000 vitals; bp 172/94, hr 71 i: Dr. Jaylan Escoto notified e: 5 mg iv hydralazine ordered and administered e: post hydralazine bp 164/84, hr 77
--- NOTE | 2020-09-29 07:25 | PC.NURSE ---
p: 0225; Patient c/o chest pain, describing it sharp, non traveling. Patient alert and oriented. i: vital signs taken; oral temp 98.7, hr 77, bp 164/84, resp 18, oxygen 96% on room air. After completing vital signs patient reported that the chest pain has resolved on its own within minutes. i: Dr. Jaylan Escoto notified , md ordered 12 lead ekg. 12 lead ekg completed and notified Dr. Jaylan Escoto. e: Per md, continue to monitor patient at this time
[2020-09-29] MEDS: Aspirin Enteric Coated 325 MG TABLET.DR PO (10:10)
[2020-09-29] MEDS: amLODIPine Besylate 5 MG TABLET PO (10:11)
[2020-09-29] MEDS: Heparin Sodium,Porcine 5,000 UNIT/ML VIAL 5000 UNIT SUBCUT ×2 (12:36→22:08)
[2020-09-29] MEDS: hydroCHLOROthiazide 12.5 MG TABLET PO (14:31)
--- NOTE | 2020-09-29 15:26 | P.PNIM_ITS ---
Subjective Subjective Date of Service: 09/29/20 Interval History: Seen in f/u for slur speech ? strok. No further issues ROS: no fever, nl speech Physical Exam Vital Signs: Vital Signs: Last Vital Signs Temp 98.0 F 09/29/20 12:00 Pulse 70 09/29/20 12:00 Resp 20 09/29/20 12:00 BP 180/90 H 09/29/20 13:58 Pulse Ox 98 09/29/20 12:00 Body Mass Index 23.9 Const: Other: General: AO X 3, no acute distress Resp: CTA bilateral CVS: S1,S2,RRR GI: +BS, NT, no distention Skin: No rash Neuro: motor grossly intact Psych: appropriate affect Objective Data Current Medications Generic Name Dose Route Start Last Admin Trade Name Freq PRN Reason Stop Dose Admin Amlodipine Besylate 5 mg 09/29/20 09:20 09/29/20 10:11 Amlodipine Besylate 5 Mg Tablet PO 5 mg DAILY SILVER Administration Protocol Aspirin 325 mg 09/28/20 06:00 09/29/20 10:10 Aspirin Enteric Coated 325 Mg Tablet.Dr PO 325 mg DAILY SILVER Administration Heparin Sodium (Porcine) 5,000 unit 09/28/20 11:00 09/29/20 12:36 Heparin Sodium,Porcine 5,000 Unit/Ml Vial SUBCUT 5,000 unit Q12H [facility] Administration Pharmacy Consult 1 each 09/27/20 21:23 Consult Rx Perform Med Rec MISCELLANE ONCE PRN Consult order Labs CBC & Chem 7: 09/28/20 06:50 09/28/20 06:50 Microbiology Microbiology Results: Microbiology 09/27/20 21:11 Urine clean catch - Clean Catch Midstream Urine Culture - Final Klebsiella pneumoniae Assessment and Plan (1) Stroke: Status: Acute (2) Dementia: Problem details: Patient's alert and oriented and appropriate at this time and may have mild cognitive impairment Status: Acute (3) IBS (irritable bowel syndrome): Status: Acute Assessment and Plan: 75/F with here with transient slur speech, no evidence of stroke on CTA--? syncope Transient slur speech--no evidence of stroke -EEG as recommended by Neuro Thoracic aorta aneurysm 5 x 4.6 vascular surgery recommend outpatient f/u Adrenal lesion--further w/u on outpatient basis, likely bening HTN--BP remain high, started on Norvasc and HCTZ Heparin for DV PT
--- NOTE | 2020-09-29 18:39 | PC.NURSE ---
Patient blood pressure elevated manually 180/90. MD made aware. Order for HCTZ PO. Son called and stated to this RN that he is sending a family friend to shredder picker the patient regardless of discharge. Son is living in [place] currently. MD made aware as well as case management. and this RN called patients son and educated the risk of blood pressure elevation and going home against medical advice. HCTZ was given and this RN with case management went to talk with the patient and educated patient about risk of leaving, along with asking her if she wanted to leave AMA/if she was aware of that per son. Patient was told to think about the risks and this RN would talk to her again before 1700 when the family friend was to pick her up. Patient is compliant with care and agrees to stay in the hospital. Case management, and this RN called patients son to explain and he stated whatever my mother wants.
[2020-09-30] VITALS (8 sets, daily range): BP systolic 117–184; BP diastolic 64–93; PULSE 54–75; RESP 18–20; TEMP 36.6–36.9; O2SAT 95–98
[2020-09-30] MEDS: Metoprolol Tartrate 5 MG/5 ML VIAL IVPUSH (02:29)
[2020-09-30] MEDS: hydrALAZINE HCl 20 MG/ML VIAL 10 MG IVPUSH (03:53)
[2020-09-30] MEDS: Aspirin Enteric Coated 325 MG TABLET.DR PO (07:58)
[2020-09-30] MEDS: amLODIPine Besylate 5 MG TABLET PO (07:58)
[2020-09-30] MEDS: lisinopriL 5 MG TABLET PO (07:59)
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
--- NOTE | 2020-09-30 11:00 | MHC.CM.PN ---
Patient has been medically cleared for dc to home today, no services. Last IMM addressed on 09/28/2020
== END 2020-09-30 18:45 | disposition home or self-care (01) | DRG 301 ==
LOC: HO.ED 20:58 → HO.IMC 23:32
PROVIDERS: Nurse Practitioner Acute Care; Nurse Practitioner Family; Physician Assistant; Admitting Provider Internal Medicine; Emergency Provider Student in an Organized Health Care Education/Training Program; Visit Provider Internal Medicine
DX: I71.2 Thoracic aortic aneurysm, without rupture (principal); K90.0 Celiac disease; G30.9 Alzheimer's disease, unspecified; F02.80 Dementia in other diseases classified elsewhere, unspecified severity, without behavioral disturbance, psychotic disturbance, mood disturbance, and anxiety; R29.701 NIHSS score 1; E27.9 Disorder of adrenal gland, unspecified; Z20.828 Contact with and (suspected) exposure to other viral communicable diseases; I10 Essential (primary) hypertension; Z88.2 Allergy status to sulfonamides; Z66 Do not resuscitate
CPT/HCPCS: 36415; 70450; 70496; 70498; 71045; 71275; 72125; 80048; 80061; 80076; 80307; 81001; 82947; 83690; 83735; 83880; 84484; 85025; 85610; 85730; 87086; 87088; 87186; 87635; 92526; 92610; 93005; 93306; 97116; 97162; 97166; 97530; 99223; 99285; Q9967

== ENCOUNTER → 2020-10-05 10:46 | Outpatient (REF) | payer MEDICARE, SELFPAY | LOC: HO.CARD 10:46 | PROVIDERS: Visit Provider Internal Medicine | DX: Z13.89 Encounter for screening for other disorder (principal) ==

== ENCOUNTER 2020-10-11 19:03 | Emergency (ER) | payer MEDICARE, SELFPAY ==
[2020-10-11 19:09] VITALS: BP 192/97; PULSE 76; RESP 15; TEMP 37; O2SAT 96; BMI 24.3
--- NOTE | 2020-10-11 19:46 | ED_ITS ---
HPI - Chest Pain General Chief Complaint: Chest Pain Stated Complaint: chest pain Time Seen by Provider: 10/11/20 19:46 Source: patient Mode of arrival: EMS Limitations: no limitations History of Present Illness HPI narrative: Patient's history of slight dementia and ascending aortic aneurysm 4 cm complaining of pain in mid chest since a.m. today patient was seen here on 09/27 for questionable slurred speech stroke workup was negative patient feels his pain constant without any significant radiation no shortness of breath no dizziness no palpitation patient lives alone and when the manager analysis came she called the ambulance for chest pain MD complaint: chest pain Onset (ago): day(s) (1) Timing of current episode: constant Prior episodes: Yes Onset: during rest Pain location: substernal Pain radiation: none Severity: mild Quality: aching Relieving factors: nothing Exacerbating factors: nothing Context: recent illness Related Data Allergies Allergy/AdvReac Type Severity Reaction Status Date / Time Sulfa (Sulfonamide Allergy Unknown UNKNOWN Unverified 07/15/20 15:03 Antibiotics) [SULFA (SULFONAMIDE ANTIBIOTICS)] gluten Allergy Abdominal Verified 09/28/20 08:13 Pain Review of Systems Review of Systems: REVIEW OF SYSTEMS: Pertinent positives and negatives are stated above in the history. GEN: no fevers, chills, fatigue HEENT: no nasal congestion, sore throat, ear pain NEURO: no headache, dizziness, focal weakness PULM: no cough, shortness of breath CV: no palpitations, LE edema ABD: no abdominal pain, nausea, vomiting, diarrhea : no dysuria, urgency, frequency SKIN: no rash ROS otherwise negative x 10 PMFSH Past Medical History Medical History (Updated 10/12/20 @ 01:26 by Familia Sherman MD) Celiac disease Syncope Social History Social History Household Members: None Housing: House Alcohol intake: never Smoking Status: Never smoker Advance Directives: No Advance Directives Information Provided: No service: No Current occupational status: retired Physical Exam Vital Signs: Vital Signs: Last Vital Signs Temp 98.6 F 10/11/20 19:09 Pulse 80 10/12/20 00:31 Resp 20 10/12/20 00:31 BP 158/89 H 10/12/20 00:31 Pulse Ox 98 10/11/20 22:29 Body Mass Index 24.3 VITAL SIGNS: Reviewed. GENERAL: Well developed, well nourished, in no acute distress. HEAD: Normocephalic/atraumatic, EYES: PERRLA No pallor/icterus noted OROPHARYNX: Oral mucosa moist no oral lesions NECK: Supple, no adenopathy LUNGS: Normal breath sounds. No adventitious sounds or accessory muscle use CARDIOVASCULAR: Regular rate and rhythm without noted murmurs, no JVD or lower extremity edema. ABDOMEN: Soft, non-tender, non-distended with normal bowel sounds. No rigidity. No guarding. No palpable masses or hernias noted MUSCULOSKELETAL: No tenderness, deformities, EXTREMITIES: No cyanosis or edema. SKIN: no rashes, ulcerations, jaundice, pallor, NEUROLOGIC: Alert and oriented x 3. Strength and sensation to light touch were grossly intact normal speech MDM - Chest Pain MDM Narrative Medical decision making narrative: Patient with mid chest pain with history of ascending aortic aneurysm without any significant radiation severity is mild EKG without any acute ST T wave changes will repeat the CTA to rule out any dissection. CT is negative for dissection no increase in the size of the ascending aorta aneurysm patient is pain-free and sleeping at this time . Vivek coleman lives alone and planning to go to her son's house at end of the ER feels uncomfortable to stay at home alone will plan to get case management involved for residential placement Medical Records Data Attestation: I reviewed the patient's medical records. Lab Data Attestation: I reviewed the patient's lab results. Result diagrams: 10/11/20 20:21 10/11/20 20:21 Labs: Lab Results 10/11/20 10/11/20 10/11/20 Range/Units 20:21 20:21 20:21 WBC 9.6 (4.8-10.8) X10*3/uL RBC 3.98 L (4.20-5.50) X10*6/uL Hgb 12.0 (12.0-16.0) g/dl Hct 36.3 L (37-47) % MCV 91.2 (80-98) fL MCH 30.2 (27.0-33.0) pg MCHC 33.1 (31.0-35.0) g/dl RDW 14.6 (11.0-16.0) % Plt Count 248 D (160-400) X10*3/uL MPV 10.5 (9.4-12.3) fL Immature Gran % (Auto) 0.4 (0.0-0.4) % Neut % (Auto) 74.6 H (45-73) % Lymph % (Auto) 13.2 L (20-40) % [place] % (Auto) 9.7 (2-11) % Eos % (Auto) 1.5 (0-4) % Baso % (Auto) 0.6 (0-2) % Lymph # (Auto) 1.3 (1.2-4.9) X10*3/uL [place] # (Auto) 0.9 (0.1-1.2) X10*3/uL Eos # (Auto) 0.1 (0.0-0.4) X10*3/uL Baso # (Auto) 0.1 (0.0-0.2) X10*3/uL Abs Immat Gran (auto) 0.04 H (0.00-0.03) X10*3/uL Absolute Neuts (auto) 7.2 (2.0-8.3) X10*3/uL Absolute Nucleated RBC 0.000 (0.0-0.012) X10*3/uL Nucleated RBC % (auto) 0.0 (0.0-0.2) /100WBC PT (10.8-13.0) SEC INR (0.9-1.1) Sodium 140 (135-145) mmol/L Potassium 4.7 D (3.3-5.1) mmol/l Chloride 104 (96-108) mmol/L Carbon Dioxide 25 (22-29) mmol/L Anion Gap 16 (12-20) BUN 18 H (9-16) mg/dL Creatinine 0.83 (0.5-1.4) mg/dL Estim Creat Clear Calc 59.2 Estimated GFR > 60 Random Glucose 91 (60-115) mg/dL Calcium 9.3 (8.4-10.2) mg/dL Troponin I High Sens 12.4 (<3.5-17.0) ng/L B-Natriuretic Peptide 263 H (<100) pg/mL Urine Color Urine Appearance Urine pH (5.0-8.0) Ur Specific [place] (1.005-1.025) Urine Protein (NEG-TRACE) MG/DL Urine Glucose (UA) (NEG) MG/DL Urine Ketones (NEG) MG/DL Urine Blood (NEG) Urine Nitrite (NEG) Ur Leukocyte Esterase (NEG) 10/11/20 10/12/20 Range/Units 20:21 00:51 WBC (4.8-10.8) X10*3/uL RBC (4.20-5.50) X10*6/uL Hgb (12.0-16.0) g/dl Hct (37-47) % MCV (80-98) fL MCH (27.0-33.0) pg MCHC (31.0-35.0) g/dl RDW (11.0-16.0) % Plt Count (160-400) X10*3/uL MPV (9.4-12.3) fL Immature Gran % (Auto) (0.0-0.4) % Neut % (Auto) (45-73) % Lymph % (Auto) (20-40) % [place] % (Auto) (2-11) % Eos % (Auto) (0-4) % Baso % (Auto) (0-2) % Lymph # (Auto) (1.2-4.9) X10*3/uL [place] # (Auto) (0.1-1.2) X10*3/uL Eos # (Auto) (0.0-0.4) X10*3/uL Baso # (Auto) (0.0-0.2) X10*3/uL Abs Immat Gran (auto) (0.00-0.03) X10*3/uL Absolute Neuts (auto) (2.0-8.3) X10*3/uL Absolute Nucleated RBC (0.0-0.012) X10*3/uL Nucleated RBC % (auto) (0.0-0.2) /100WBC PT 10.8 (10.8-13.0) SEC INR 0.9 (0.9-1.1) Sodium (135-145) mmol/L Potassium (3.3-5.1) mmol/l Chloride (96-108) mmol/L Carbon Dioxide (22-29) mmol/L Anion Gap (12-20) BUN (9-16) mg/dL Creatinine (0.5-1.4) mg/dL Estim Creat Clear Calc Estimated GFR Random Glucose (60-115) mg/dL Calcium (8.4-10.2) mg/dL Troponin I High Sens (<3.5-17.0) ng/L B-Natriuretic Peptide (<100) pg/mL Urine Color YELLOW Urine Appearance HAZY Urine pH 8.0 (5.0-8.0) Ur Specific [place] 1.010 (1.005-1.025) Urine Protein NEG (NEG-TRACE) MG/DL Urine Glucose (UA) NEG (NEG) MG/DL Urine Ketones 5 (NEG) MG/DL Urine Blood NEG (NEG) Urine Nitrite NEG (NEG) Ur Leukocyte Esterase NEG (NEG) ECG Data ECG #1: Attestation: I personally reviewed and interpreted this ECG as follows: Prior ECG tracings: available for review Interpretation: Normal sinus rhythm with ventricular rate 77 occasional PVCs unifocal no acute ST T wave changes normal axis normal intervals impression no acute ischemia Discharge Plan Discharge Clinical Impression: Atypical chest pain, Unsteady gait
--- NOTE | 2020-10-11 19:49 | PC.NURSE ---
IV established, labs obtained. MD at bedside for primary eval. EKG completed previously by chemical technician. Call fountain within reach, continue to monitor.
--- NOTE | 2020-10-11 19:52 | XR_ITS ---
EXAMINATION: XR CHEST CLINICAL INFORMATION: Chest pain COMPARISON: CTA chest 09/27/2020 and chest x-ray 09/27/2020 TECHNIQUE: Frontal view of the chest was obtained. FINDINGS: Cardiac silhouette is stable in size. Atherosclerotic disease of the aortic arch. The lungs are adequately aerated. There is no lobar consolidation. No pleural effusion or pneumothorax. Left axillary calcifications again noted. XR/XR chest 1V IMPRESSION: No acute pulmonary pathology.
--- NOTE | 2020-10-11 19:52 | ECG_ITS ---
Test Reason : CHEST PAIN Blood Pressure : / mmHG Vent. Rate : 079 BPM Atrial Rate : 080 BPM P-R Int : 206 ms QRS Dur : 092 ms QT Int : 404 ms P-R-T Axes : 076 -22 051 degrees QTc Int : 463 ms Poor data quality Sinus rhythm with marked sinus arrhythmia Cannot rule out inferior infarct Nonspecific T wave changes Abnormal ECG When compared with ECG of 29-SEP-2020 02:23, No significant changes seen Referred By: Familia Sherman Electronically Signed By:Jonathan Andrea
[2020-10-11 20:30] LABS: Basophils Absolute Auto 0.1 X10*3/uL (0.0-0.2); Basophils Percent Auto 0.6 % (0-2); Eosinophils Absolute Auto 0.1 X10*3/uL (0.0-0.4); Eosinophils Percent Auto 1.5 % (0-4); Hematocrit 36.3 % (37-47); Imm Gran Abs Auto 0.04 X10*3/uL (0.00-0.03); Imm Gran Pct Auto 0.4 % (0.0-0.4); Lymphocytes Absolute Auto 1.3 X10*3/uL (1.2-4.9); Lymphocytes Percent Auto 13.2 % (20-40); MANUAL DIFF FLAG NO; Mean Corpuscular HGB Conc 33.1 g/dl (31.0-35.0); Mean Corpuscular Hemoglobin 30.2 pg (27.0-33.0); Mean Corpuscular Volume 91.2 fL (80-98); Mean Platelet Volume 10.5 fL (9.4-12.3); Monocytes Absolute Auto 0.9 X10*3/uL (0.1-1.2); Monocytes Percent Auto 9.7 % (2-11); Neutrophils Absolute Auto 7.2 X10*3/uL (2.0-8.3); Neutrophils Percent Auto 74.6 % (45-73); Platelet Count 248 X10*3/uL (160-400); Red Blood Count 3.98 X10*6/uL (4.20-5.50); Red Cell Distribution Width 14.6 % (11.0-16.0); White Blood Count 9.6 X10*3/uL (4.8-10.8)
[2020-10-11 20:37] LABS: INTERNATIONAL NORM RATIO 0.9 (0.9-1.1); Prothrombin Time 10.8 SEC (10.8-13.0)
[2020-10-11 20:52] LABS: Anion Gap 16 (12-20); Blood Urea Nitrogen 18 mg/dL (9-16); Calcium 9.3 mg/dL (8.4-10.2); Carbon Dioxide 25 mmol/L (22-29); Chloride 104 mmol/L (96-108); Creatinine Clr Calc Pharmacy 59.2; Estimated Glomerular Filt Rate > 60; Glucose Random 91 mg/dL (60-115); Potassium 4.7 mmol/l (3.3-5.1); Sodium 140 mmol/L (135-145)
[2020-10-11 20:59] LABS: Troponin-I High Sensitivity 12.4 ng/L (<3.5-17.0)
--- NOTE | 2020-10-11 21:24 | PC.NURSE ---
This RN updating Terry, . Per son, pt had a fall outside 1 week ago but refused medical care. Per son, pt refuses to use assistive devices to ambulate. Diagnosed with Alzheimers in 2017 but son states due to quarantine, her memory has been severely deteriorating. Son explains that she has a veterans service officer who stays with her during the day but she lives alone. Plan to move to [place] to live with son once [employer] is over. aware.
--- NOTE | 2020-10-11 21:27 | CT_ITS ---
EXAMINATION: CT ANGIOGRAM CHEST WITH CONTRAST CLINICAL INFORMATION: Ascending aortic aneurysm with increasing pain with question of dissection. COMPARISON: CT angiogram chest 09/27/2020. TECHNIQUE: Multiple axial images were obtained through the chest after the administration of 65 mL of Omnipaque 350 intravenous contrast. Extensive vascular post-processing including two-dimensional and three-dimensional reformatted images were created and reviewed on an independent workstation. This CT examination was performed using dose optimization techniques as appropriate, variously including the following: *Automated exposure control. *Adjustment of mA and/or kV according to patient size (this includes techniques or standardized protocols for targeted exams where dose is matched to indication/reason for exam; i.e. extremities or head). *Use of iterative reconstruction technique. DLP: 494 mGy-cm FINDINGS: LUNGS: The lungs are clear with no evidence of inflammation or nodules. Again noted is bibasilar atelectasis. MEDIASTINUM: The heart is enlarged. No mediastinal or hilar lymphadenopathy is seen. Coronary artery calcifications are present. VASCULAR: Again seen is aneurysmal dilatation of the ascending thoracic aorta which is unchanged when compared to the study from 09/27/2020. No aortic dissection is seen. Maximal transverse dimension at the level of the main pulmonary artery is unchanged at about 4.8 cm. Again noted is a three-vessel branching pattern of the aortic arch with widely patent great vessels. The visualized portion of the abdominal aorta is also unchanged and ectatic with atherosclerotic changes. Although not carried out for evaluation of the pulmonary arteries and pulmonary veins, no gross abnormality is seen. PLEURA: There is no significant pleural effusion. No pleural mass or thickening. AXILLA: No lymphadenopathy. UPPER ABDOMEN: The gallbladder is distended and contains large faceted gallstones, the largest measuring 2 cm in size. Again seen is an enlarged left adrenal mass, unchanged. No other abnormality is seen in the upper abdomen. OSSEOUS STRUCTURES: Unremarkable. CT/CT angio chest IMPRESSION: No evidence of increasing size of ascending aortic aneurysm or development of an aortic dissection. Incidental note made of cholelithiasis and left adrenal mass.
--- NOTE | 2020-10-11 21:28 | PC.NURSE ---
This RN calling the lab regarding BNP that was not run.
[2020-10-11 21:31] VITALS: BP 176/88; PULSE 79; RESP 24
--- NOTE | 2020-10-11 21:32 | PC.NURSE ---
Pt continues reporting 7/10 chest pain. Pt appears weak and exhausted. Bruising and abrasions noted to face/forehead from recent fall. VSS. Continue to monitor. Per MD, plan to CT.
[2020-10-11] MEDS: Nitroglycerin 2 % Oint 1 GM Packet 1 INCH TRANSDERMA (21:40)
--- NOTE | 2020-10-11 21:43 | PC.NURSE ---
Pt medicated with Nitro. Off to CT on hospital bed.
[2020-10-11 21:47] LABS: B Type Natriuretic Peptide 263 pg/mL (<100)
--- NOTE | 2020-10-11 21:48 | PC.NURSE ---
Per Eugenio, pts neighbor/forestry fire aide, pt is a severe alcoholic and drinks approx 30 beers/day with liquor. Pt has been in and out of detox several times. aware.
[2020-10-11] MEDS: iohexoL 350 MG/ML 100 ML INFUS..BTL 65 ML IV (22:11)
[2020-10-11 22:29] VITALS: BP 175/86; PULSE 80; RESP 18; O2SAT 98
[2020-10-11 22:57] VITALS: BP 168/103; PULSE 79
[2020-10-11] MEDS: amLODIPine Besylate 5 MG TABLET PO (22:57)
[2020-10-11 23:29] VITALS: BP 168/89; PULSE 78; RESP 20
--- NOTE | 2020-10-11 23:32 | PC.NURSE ---
Pt reports some relief of CP, states pain decreased to a 6/10. Pt resting in bed, VSS. Continue to monitor.
[2020-10-12] VITALS (7 sets, daily range): BP systolic 133–167; BP diastolic 69–99; PULSE 76–86; RESP 15–20; TEMP 36.7–36.9; O2SAT 93–98
--- NOTE | 2020-10-12 00:53 | PC.NURSE ---
Ambulation trial attempted, pt extremely unsteady on feet, unable to ambulate without assistance. Once assisted onto toilet, pt was unable to stand without assistance. Upon return to room, pt extremely SOB, unable to speak in full sentences. Pt assisted into bed into POC, recovered quickly. Urine sample obtained. MD aware, per MD plan for repeat trop and Covid swab for rehab placement.
--- NOTE | 2020-10-12 01:15 | PC.NURSE ---
audiovisual tech at bedside for repeat Trop and Covid swab.
[2020-10-12 01:16] LABS: Glucose Urine UA NEG (NEG); Leukocyte Esterase Urine NEG (NEG); Nitrite Urine NEG (NEG); Urine Blood NEG (NEG); Urine Ketones 5 MG/DL (NEG); Urine Protein NEG (NEG-TRACE)
[2020-10-12 01:27] LABS: Appearance Urine HAZY; Color Urine YELLOW
[2020-10-12 01:45] LABS: Troponin-I High Sensitivity 9.5 ng/L (<3.5-17.0)
[2020-10-12 02:08] LABS: Influenza A PCR NEGATIVE (Negative); Influenza B PCR NEGATIVE (Negative); Resp Syncy Virus RNA Qual PCR NEGATIVE (Negative); SARS COV2 PCR INHOUSE NEGATIVE (Negative)
--- NOTE | 2020-10-12 02:18 | PC.NURSE ---
Son Terry updated on plan for CM with a PT eval in the morning. Son agreeable due to weakness, unsteady gait and recent falls.
--- NOTE | 2020-10-12 06:27 | PC.NURSE ---
Pt awakes in bed, reports relief of CP at this time. Pt assisted OOB and to the bathroom, 1-2 assist to the bathroom due to unsteady gait. Pt assisted back to bed into POC. Pt provided with water and GF snacks, awaiting breakfast. VSS. Continue to monitor.
--- NOTE | 2020-10-12 07:15 | PC.NURSE ---
pt is currently eating breakfast plan for pt to go to [facility]
--- NOTE | 2020-10-12 08:23 | PC.NURSE ---
pt is currently resting in the stretcher talking on the phone, denies pain at this time, respirations even and unlabored
--- NOTE | 2020-10-12 09:54 | PC.NURSE ---
PT RESTING IN THE STRETCHER, ALERT BUT SLIGHTLY ALTERED BUT PT HAS HX OF DEMENTIA, DENIES CHEST PAIN, NS ON THE MONITOR, VS STABLE AT THIS TIME. PT AWARE OF PLAN TO BEE SEEN BY PHYSICAL THERAPY DUE TO MULTIPLE FALLS AT HOME. PT DOES HAVE OLD SCABS/ABRASIONS TO HER FOREHEAD/NOSE AREA
--- NOTE | 2020-10-12 10:07 | PC.NURSE ---
SPOKE TO SON KANDICE [phone], UPDATED HIM ON HIS MOTHERS PLAN OF CARE TO SEE PHYSICAL THERAPY AND CASE MANAGEMENT
--- NOTE | 2020-10-12 11:02 | PC.NURSE ---
updated pt's brother dawn de león that lives in [facility] [phone]
--- NOTE | 2020-10-12 12:14 | MHC.CM.ED ---
Discussed with pt PT recommendations for rehab to improve balance and promote safety. Pt not happy with recommendation, but will allow CM to place local referrals. Wants to speak with son and wants to be home with her brother for yovanny. Spoke with son, Terry, regarding mother being in ED and PT recommendations for rehab. Terry tells me he is the HCP, but unsure where paperwork is. Agreeable to CM completing another with his mother. Terry is agreeable to SNF for rehab, but wants to speak with his mother. Terry tells me he will be coming to [place] the first week of October to move his mom in with him in [place] Terry tells me he has help from friend who sees his mother every day. Terry tells me his mom's brother Aiden, who lives in [place], will spend yovanny with her and can help to provide safe discharge from SNF until he can drive here. Will complete HCP with pt. 11 referrals broadcasted. Pt has Lexa's health plan.
--- NOTE | 2020-10-12 14:09 | MHC.CM.ED ---
Met with pt. [facility] and [facility] have offered a bed. Pt. is refusing to go to rehab. Son is speaking to pt on the phone. Trying to convince her to go to rehab. Pt insistent that she be home for [place]. Spoke with HECTOR Coleman. Tells me she recommended pt go to rehab on last ED visit on 09/27 and pt refused. 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 Son adamantly states his mother does not drink and hasn't had a drink in over 40 years. Son tells CM he does not know any neighbor named Eugenio and that the person who cares for his mother is Viviana. Son also tells me that he has made arrangements for Viviana to stay with mother until howes cave, and then her brother , Aiden, will have pt stay with him in [place] until he can get to [place] the first week of October. Terry, son, will speak with pt again to try and convince her to go to rehab. Will call CM back. Will continue to follow for d/c needs
--- NOTE | 2020-10-12 15:07 | MHC.CM.ED ---
Spoke with son, Terry. Pt continues to refuse rehab, but he assures CM that he has arranged care for his mother. Viviana, family friend, who has been caring for her will stay with her this week and then pt will go to Brother's(Aiden) for week after yovanny. Tryo will then be in [place] from [place] to move mother to his home. Pt very happy about d/c plan. Lianna MADRID and RN aware of D/C plan. Transportation home by Viviana, family friend, before 5pm. SNF notified of pt refusal for rehab.
--- NOTE | 2020-10-12 16:00 | PC.NURSE ---
pt is currenlty sleeping, respirations even and unlabored
== END 2020-10-12 18:24 | disposition home or self-care (01) ==
PROVIDERS: Emergency Provider Internal Medicine
DX: R07.89 Other chest pain (principal); Z20.828 Contact with and (suspected) exposure to other viral communicable diseases; R26.81 Unsteadiness on feet; R41.82 Altered mental status, unspecified
CPT/HCPCS: 0241U; 36415; 71045; 71275; 80048; 81003; 83880; 84484; 85025; 85610; 93005; 97162; 99284; 99285; Q9967